=== PATIENT | female | born 1980 ===

== ENCOUNTER 2016-10-28 21:28 | Emergency (ER) | payer SELFPAY ==
[2016-10-28 21:33] VITALS: BP 106/63; PULSE 91; RESP 16; TEMP 98.6; O2SAT 98
[2016-10-28] MEDS ORDERED: Sodium Chloride 0.9% 1,000 ML IV STA (21:44)
--- NOTE | 2016-10-28 22:20 | ED PDOC ---
HPI: Abdomen Time Seen by Provider: 10/28/16 21:38 Chief Complaint (Nursing): Abdominal Pain Chief Complaint (Provider): Abdominal Pain History Per: Patient History/Exam Limitations: no limitations Pain Scale Rating Of: 7 Location Of Pain/Discomfort: RUQ (Epigastric tenderness) Quality Of Discomfort: Burning Associated Symptoms: Nausea, Vomiting (Non bloody. Non bilious vomiting), Constipation. denies: Fever Additional Complaint(s): Wilmer Mortensen is a 36 y/o female who presents to the ED with a chief complaint of abdominal pain and nausea onset x1week. Associated symptoms include vomiting(non bloody, non bilious) and constipation. Patient reports the abdominal pain is located in the right upper quadrant and radiates to the right flank. States discomfort is 7/10 and is described as a burning sensation. Denies any fever, cough, shortness of breath, or chest pain. Past Medical History Reviewed: Historical Data, Nursing Documentation, Vital Signs Vital Signs: Last Vital Signs Temp 98.6 F 10/28/16 21:32 Pulse 91 H 10/28/16 21:32 Resp 16 10/28/16 21:32 BP 106/63 10/28/16 21:32 Pulse Ox 98 10/28/16 22:38 - Medical History PMH: No Chronic Diseases - Surgical History Surgical History: No Surg Hx - Family History Family History: States: Unknown Family Hx - Social History Current smoker - smoking cessation education provided: No Ex-Smoker (has not smoked in the last 12 months): No Alcohol: None Drugs: Denies - Allergies Allergies/Adverse Reactions: Allergies Allergy/AdvReac Type Severity Reaction Status Date / Time No Known Allergies Allergy Verified 10/28/16 21:31 Review of Systems ROS Statement: Except As Marked, All Systems Reviewed And Found Negative Constitutional: Negative for: Fever Cardiovascular: Negative for: Chest Pain Respiratory: Negative for: Cough, Shortness of Breath Gastrointestinal: Positive for: Nausea, Vomiting (Non bloody non billius vomiting), Abdominal Pain, Constipation Physical Exam - Reviewed Nursing Documentation Reviewed: Yes Vital Signs Reviewed: Yes - Physical Exam Appears: Positive for: Well, Non-toxic, Uncomfortable Head Exam: Positive for: ATRAUMATIC, NORMAL INSPECTION, NORMOCEPHALIC Skin: Positive for: Normal Color, Warm, Dry Eye Exam: Positive for: Normal appearance, EOMI, PERRL ENT: Positive for: Normal ENT Inspection Neck: Positive for: Normal, Painless ROM, Supple Cardiovascular/Chest: Positive for: Regular Rate, Rhythm. Negative for: Murmur , Tachycardia Respiratory: Positive for: Normal Breath Sounds. Negative for: Wheezing, Respiratory Distress Gastrointestinal/Abdominal: Positive for: Normal Exam, Soft, Tenderness (RUQ Epigastric tenderness) Back: Positive for: Normal Inspection Rectal: Positive for: Deferred Extremity: Positive for: Normal ROM Lymphatic: Positive for: Deferred Neurologic/Psych: Positive for: Alert, Oriented - Laboratory Results Result Diagrams: 10/28/16 22:14 10/28/16 22:14 - ECG O2 Sat by Pulse Oximetry: 98 (RA) Pulse Ox Interpretation: Normal Medical Decision Making Medical Decision Making: Time : 2137: Initial Impression: Right upper quadrant epigastric pain Initial Plan: * Beta HCG * CMP * Lipase Stat * Urine * ED U-Dip * CBC with differentials * Sodium chloride 1000ml * Zofran 4mg IV * Heplock Insertion * Urinalysis Stat * Abdomen limited (GB included) US * Pelvic tranvag US Stat * Re-Eval 7: US OB impression: Single live IUP with details as above. Followup imaging recommended. US RUQ impression: No acute sonographic abnormality. Details as above. 0005: Labs reviewed, show no clinically significant abnormalities and patient stable for d/c. Dx: first trimester stable Scribe Attestation: Documented by Elena Ortiz acting as a scribe for Beau Leslie MD. Provider Scribe Attestation: All medical record entries made by the Scribe were at my direction and personally dictated by me. I have reviewed the chart and agree that the record accurately reflects my personal performance of the history, physical exam, medical decision making, and the department course for this patient. I have also personally directed, reviewed, and agree with the discharge instructions and disposition. Time Disposition - Clinical Impression Clinical Impression: Abdominal pain during - Patient ED Disposition Is Patient to be Admitted: No - Disposition Referrals: [facility] [Outside] Disposition: Routine/Home Disposition Time: 00:05 Condition: STABLE Instructions: First Trimester (ED) Print Language: JORDANIAN
[2016-10-28 22:27] LABS: BASO # 0.1 K/uL (0.0-0.2); BASO % 0.5 % (0.0-2.0); EOS # 0.4 K/uL (0.0-0.7); EOS % 3.7 % (0.0-4.0); HEMATOCRIT 36.8 % (34.0-47.0); LYMPH # 3.5 K/uL (1.0-4.3); LYMPH % 31.9 % (20.0-40.0); MEAN CORPUSCULAR HEMOGLOBIN 29.7 pg (27.0-31.0); MEAN CORPUSCULAR HGB CONC 33.4 g/dL (33.0-37.0); MONO # 0.7 K/uL (0.0-0.8); MONO % 6.2 % (0.0-10.0); NEUT # 6.4 K/uL (1.8-7.0); NEUT % 57.7 % (50.0-75.0); NRBC % 0.1 % (0.0-0.0); RED CELL DISTRIBUTION WIDTH 12.9 % (11.5-14.5)
[2016-10-28 22:38] LABS: ALB/GLOB RATIO 1.2 (1.0-2.1); ALKALINE PHOSPHATASE 73 U/L (38-126); ALT/SGPT 63 U/L (9-52); AST/SGOT 31 U/L (14-36); BILIRUBIN,TOTAL 0.2 mg/dl (0.2-1.3); BLOOD UREA NITROGEN 8 mg/dl (7-17); CALCIUM 9.1 mg/dL (8.4-10.2); CARBON DIOXIDE 23 mmol/L (22-30); CHLORIDE 103 mmol/L (98-107); GFR AFRICAN-AMERICAN > 60; GLUCOSE,RANDOM 106 mg/dL (65-105); LIPASE 80 U/L (23-300); POTASSIUM 3.9 MMOL/L (3.6-5.0); SODIUM 136 mmol/l (132-148); TOTAL PROTEIN 7.3 G/DL (6.3-8.2)
[2016-10-28 22:41] LABS: RBC URINE 5 /hpf (0-3); URINE BACTERIA RARE (<OCC); URINE BILIRUBIN NEGATIVE (NEGATIVE); URINE BLOOD SMALL (NEGATIVE); URINE COLOR YELLOW (YELLOW); URINE GLUCOSE (UA) NEG (Normal); URINE KETONE TRACE mg/dL (NEGATIVE); URINE LEUKOCYTE ESTERASE TRACE Leu/uL (Negative); URINE PROTEIN NEGATIVE (NEGATIVE); URINE UROBILINOGEN 0.2-1.0 mg/dL (0.2-1.0); WBC URINE 3 /hpf (0-5)
--- NOTE | 2016-10-28 23:38 | US ---
EXAM: US Uterus CLINICAL HISTORY: 36 years old, female; Pain; Other: Abd pain; Gestational age or lmp: Unknown; ; Additional info: Abd pain in preg TECHNIQUE: Real-time ultrasound of the maternal uterus with image documentation. COMPARISON: No relevant prior studies available. FINDINGS: Uterus: There is a gestational sac within the endometrial canal. A pole and yolk sac are seen within the gestational sac. Mean sac diameter corresponds with gestational age of 9 weeks 5 days. Yolk sac measured at 7.6 mm. Ragan rump length measurement correlates with an estimated gestational age of 8 weeks 4 days. cardiac activity is seen with a heart rate of 163 beats per minute. Adnexa: 1.8 cm right ovarian cyst. Bilateral Doppler flow. Free fluid: None. IMPRESSION: Single live IUP with details as above. Followup imaging recommended.
--- NOTE | 2016-10-28 23:40 | US ---
EXAM: US Abdomen Limited, Right Upper Quadrant CLINICAL HISTORY: 36 years old, female; Pain; Abdominal pain; Epigastric; ; Additional info: Abd pain TECHNIQUE: Real-time ultrasound of the right upper quadrant with image documentation. COMPARISON: No relevant prior studies available. FINDINGS: Liver: Unremarkable as visualized. No mass. No intrahepatic bile duct dilation. Gallbladder: Contracted. Unremarkable in appearance. Common bile duct: No dilation. Pancreas: Unremarkable as visualized. Right kidney: Measures at 10.9 cm. No hydronephrosis. Bowel gas. IMPRESSION: No acute sonographic abnormality. Details as above.
== END 2016-10-29 00:18 | disposition home or self-care (01) ==
LOC: H.ER 21:28
DX: O26.899 Other specified pregnancy related conditions, unspecified trimester (principal); O21.9 Vomiting of pregnancy, unspecified
CPT/HCPCS: 76705; 76815; 80053; 81003; 81025; 83690; 85025; 99282; J2405; J7040

== ENCOUNTER 2017-07-03 14:13 | Emergency (ER) | payer OTHER ==
[2017-07-03 14:48] VITALS: BP 123/73; PULSE 83; RESP 20; TEMP 98; O2SAT 100
--- NOTE | 2017-07-03 16:17 | ED PDOC ---
HPI: Abdomen Time Seen by Provider: 07/03/17 15:42 Chief Complaint (Nursing): Abdominal Pain Chief Complaint (Provider): Abdominal pain History Per: Patient History/Exam Limitations: no limitations Additional Complaint(s): Pt reports lower abdominal pain X 1 month, associated with nausea. LMP at end of May but for one day. Denies fever, vomiting, diarrhea, dysuria, vaginal bleeding, vaginal discharge. Last BM 4 days ago. Unsure if she is . Past Medical History Reviewed: Nursing Documentation, Vital Signs Vital Signs: Last Vital Signs Temp 98.0 F 07/03/17 14:44 Pulse 83 07/03/17 14:44 Resp 20 07/03/17 14:44 BP 123/73 07/03/17 14:44 Pulse Ox 100 07/03/17 17:21 - Medical History PMH: No Chronic Diseases - Surgical History Surgical History: No Surg Hx - Family History Family History: States: Unknown Family Hx - Social History Current smoker - smoking cessation education provided: No Alcohol: None - Home Medications Home Medications: Ambulatory Orders Medication Instructions Recorded Polyethylene Glycol 3350 [Miralax] 1 tbs PO DAILY PRN #1 bottle 07/03/17 - Allergies Allergies/Adverse Reactions: Allergies Allergy/AdvReac Type Severity Reaction Status Date / Time No Known Allergies Allergy Verified 07/03/17 14:44 Review of Systems Constitutional: Negative for: Fever, Chills Cardiovascular: Negative for: Chest Pain, Palpitations Respiratory: Negative for: Cough, Shortness of Breath Gastrointestinal: Positive for: Nausea, Abdominal Pain. Negative for: Vomiting , Diarrhea Genitourinary Female: Negative for: Dysuria, Hematuria, Vaginal Discharge, Vaginal Bleeding Musculoskeletal: Negative for: Back Pain Skin: Negative for: Rash, Lesions Neurological: Negative for: Headache, Dizziness Physical Exam - Reviewed Nursing Documentation Reviewed: Yes Vital Signs Reviewed: Yes - Physical Exam Appears: Positive for: Well, No Acute Distress Skin: Positive for: Normal Color, Warm, Dry Eye Exam: Positive for: Normal appearance, EOMI, PERRL Cardiovascular/Chest: Positive for: Regular Rate, Rhythm Respiratory: Positive for: Normal Breath Sounds Gastrointestinal/Abdominal: Positive for: Normal Exam, Bowel Sounds, Soft. Negative for: Tenderness, Guarding, Rebound Back: Positive for: Normal Inspection. Negative for: L CVA Tenderness, R CVA Tenderness Extremity: Positive for: Normal ROM Neurologic/Psych: Positive for: Alert, Oriented - ECG O2 Sat by Pulse Oximetry: 100 Medical Decision Making Medical Decision Makin yo female with nausea, abdominal pain and constipation. - UA - urine Disposition - Clinical Impression Clinical Impression: Constipation - Disposition Referrals: [facility] [Outside] Disposition: Routine/Home Disposition Time: 17:18 Condition: GOOD Prescriptions: Polyethylene Glycol 3350 [Miralax] 1 tbs PO DAILY PRN #1 bottle PRN Reason: Constipation Instructions: Constipation (ED) Forms: [employer] (Persian) Print Language: SAO TOMEAN
--- NOTE | 2017-07-03 17:43 | RAD ---
Indication: Constipation Abdomen with chest radiographs Comparison: None Findings: The cardiomediastinal silhouette appears within normal limits. No focal consolidation, significant pleural effusion, or definite pneumothorax identified.Please note that chest x-ray has limited sensitivity for the detection of pulmonary masses. Nonobstructive bowel gas pattern. No definite free air. Mild constipation. No acute osseous abnormality is detected. Impression: Mild constipation.
== END 2017-07-03 17:23 | disposition home or self-care (01) ==
LOC: H.ER 14:13
DX: K59.00 Constipation, unspecified (principal)

== ENCOUNTER 2017-09-01 19:52 | Emergency (ER) | payer SELFPAY ==
[2017-09-01 19:59] VITALS: RESP 16; O2SAT 98
[2017-09-01] MEDS ORDERED: Sodium Chloride 0.9% 1,000 ML IV SCH (20:45)
--- NOTE | 2017-09-01 21:06 | ED PDOC ---
HPI: Abdomen Time Seen by Provider: 09/01/17 20:25 Chief Complaint (Nursing): GI Problem Chief Complaint (Provider): Abdominal pain History Per: Patient History/Exam Limitations: no limitations Onset/Duration Of Symptoms: Days, Persistent Outside of [place] travel?: No Current Symptoms Are (Timing): Still Present Location Of Pain/Discomfort: Suprapubic Quality Of Discomfort: "Pain" Associated Symptoms: Nausea, Constipation Additional History Per: Patient Additional Complaint(s): 37yo female, presents to ED with complaints of lower abdominal pain, initially intermittent for the past 2 days but constant today. Patient also reports associated nausea, constipation (past 4 days, with small bowel movement). Otherwise: (-) vomiting, (-) diarrhea, (-) fever, (-) urinary symptoms, (-) vaginal bleeding or d/c, (-) melena, (-) hematochezia, (-) h/o abdominal surgery. Abnormal Vaginal Bleeding: No Past Medical History Reviewed: Historical Data, Nursing Documentation, Vital Signs Vital Signs: Last Vital Signs Temp 98.1 F 09/01/17 19:56 Pulse 85 09/01/17 19:56 Resp 16 09/01/17 19:56 BP 123/80 09/01/17 19:56 Pulse Ox 98 09/01/17 21:18 - Medical History PMH: No Chronic Diseases - Surgical History Surgical History: No Surg Hx - Family History Family History: States: Unknown Family Hx - Home Medications Home Medications: Ambulatory Orders Medication Instructions Recorded Polyethylene Glycol 3350 [Miralax] 1 tbs PO DAILY PRN #1 bottle 07/03/17 Polyethylene Glycol 3350 [Miralax] 17 pow PO DAILY #20 each 09/01/17 - Allergies Allergies/Adverse Reactions: Allergies Allergy/AdvReac Type Severity Reaction Status Date / Time No Known Allergies Allergy Verified 07/03/17 14:44 Review of Systems ROS Statement: Except As Marked, All Systems Reviewed And Found Negative Constitutional: Negative for: Fever, Chills Cardiovascular: Negative for: Chest Pain Gastrointestinal: Positive for: Abdominal Pain. Negative for: Nausea, Vomiting , Diarrhea Physical Exam - Physical Exam Comments: GENERAL APPEARANCE: Patient is awake, alert, oriented x 3, in no acute distress SKIN: Warm, dry; (-) cyanosis. EYES: (-) conjunctival pallor, (-) scleral icterus. ENMT: Mucous membranes moist. NECK: (-) tenderness, (-) stiffness, (-) lymphadenopathy. CHEST AND RESPIRATORY: (-) rales, (-) rhonchi, (-) wheezes; breath sounds equal bilaterally. HEART AND CARDIOVASCULAR: (-) irregularity; (-) murmur, (-) gallop. ABDOMEN AND GI: (-) distention. Bowel sounds active; (+) mild suprapubic tenderness, (-) guarding, (-) rebound, (-) palpable masses, (-) CVA tenderness. EXTREMITIES: (-) deformity, (-) edema, (+) distal pulses. NEURO AND PSYCH: Mental status as above; (-) focal findings. - Laboratory Results Result Diagrams: 09/01/17 22:15 09/01/17 22:15 - ECG O2 Sat by Pulse Oximetry: 98 Medical Decision Making Medical Decision Making: Previous medical records are reviewed, patient was last seen in this emergency room on 07/03/2017 for lower abdominal pain, abdominal x-rays were done, and patient was diagnosed with constipation. Impression: Constipation, consider UTI, r/o ectopic Plan: -- Labs -- IV fluids -- Urinalysis -- Uhcg -- AXR -- Zofran ODT PO/ Toradol IV -- Reassess and disposition Uhcg : (-) UA : (-) for infection Labs : reviewed and wnl AXR : NSBGP, no air fluid levels, as read by PA On re-evaluation, patient reports improvement of abdominal pain. On exam, patient remains AAOx3, in no acute distress. On exam, abdomen soft, non-tender. Diagnostic results d/w the patient in great detail. Diagnosis of constipation d/ w the patient. Advised to increase intake of water, fiber and increase physical activity including exercise to maintain normal bowel movements. Based on history, exam and diagnostic results, plan will be for outpatient follow up. Patient instructed to follow-up with the clinic in 1-2 days without fail. Advised to take medication as prescribed. Return to the emergency room at any time for any new or worsening symptoms. Patient states hshe fully agrees with and understands discharge instructions. States that she agrees with the plan and disposition. Verbalized and repeated discharge instructions and plan. I have given the patient opportunity to ask any additional questions. Disposition - Clinical Impression Clinical Impression: Constipation, Abdominal pain - Patient ED Disposition Is Patient to be Admitted: No Counseled Patient/Family Regarding: Studies Performed, Diagnosis, Need For Followup, Rx Given - Disposition Referrals: [facility] [Outside] [facility] [Outside] Disposition: Routine/Home Disposition Time: 23:15 Condition: IMPROVED Additional Instructions: Thank you for letting us take care of you today. You were treated for abdominal pain, constipation. The emergency medical care you received today was directed at your acute symptoms. If you were prescribed any medication, please fill it and take as directed. It may take several days for your symptoms to resolve. Return to the Emergency Department if your symptoms worsen, do not improve, or if you have any other problems. Please contact your doctor in 2 days for re-evaluation and follow up / or call one of the physicians/clinics you have been referred to that are listed on the Patient Visit Information form that is included in your discharge packet. Bring any paperwork you were given at discharge with you along with any medications you are taking to your follow up visit. Our treatment cannot replace ongoing medical care by a primary care provider (PCP) outside of the emergency department. Thank you for allowing the [facility] team to be part of your care today. Prescriptions: Polyethylene Glycol 3350 [Miralax] 17 pow PO DAILY #20 each Instructions: Constipation in Adults Forms: [employer] (Chinese) Print Language: UKRAINIAN
[2017-09-01 22:27] LABS: BASO % 0.4 % (0.0-2.0); EOS # 0.4 K/uL (0.0-0.7); EOS % 4.5 % (0.0-4.0); HEMOGLOBIN 12.9 g/dL (12.0-16.0); LYMPH # 3.6 K/uL (1.0-4.3); LYMPH % 42.7 % (20.0-40.0); MEAN CELL VOLUME 89.5 fl (81.0-99.0); MEAN CORPUSCULAR HEMOGLOBIN 29.3 pg (27.0-31.0); MEAN CORPUSCULAR HGB CONC 32.8 g/dL (33.0-37.0); MEAN PLATELET VOLUME 8.6 fl (7.2-11.7); MONO # 0.4 K/uL (0.0-0.8); MONO % 5.1 % (0.0-10.0); NEUT % 47.3 % (50.0-75.0); NRBC % 0.1 % (0.0-0.0); RBC 4.39 Mil/uL (3.80-5.20); RED CELL DISTRIBUTION WIDTH 12.8 % (11.5-14.5); SQUAMOUS EPITHIAL < 1 /hpf (0-5); URINE BILIRUBIN NEGATIVE (NEGATIVE); URINE BLOOD SMALL (NEGATIVE); URINE CLARITY CLEAR (Clear); URINE COLOR COLORLESS (YELLOW); URINE GLUCOSE (UA) NEG (Normal); URINE LEUKOCYTE ESTERASE NEG Leu/uL (Negative); URINE PROTEIN NEGATIVE (NEGATIVE); URINE UROBILINOGEN 0.2-1.0 mg/dL (0.2-1.0); WHITE BLOOD COUNT 8.5 K/uL (4.8-10.8)
[2017-09-01 22:33] LABS: ALB/GLOB RATIO 1.1 (1.0-2.1); ALBUMIN 3.9 g/dL (3.5-5.0); ALT/SGPT 45 U/L (9-52); AST/SGOT 22 U/L (14-36); BLOOD UREA NITROGEN 13 mg/dl (7-17); CALCIUM 8.7 mg/dL (8.4-10.2); GFR AFRICAN-AMERICAN > 60; GFR NON-AFRICAN AMERICAN > 60; LIPASE 105 U/L (23-300)
[2017-09-02 00:12] VITALS: BP 129/68; PULSE 77; TEMP 98.2
--- NOTE | 2017-09-02 08:11 | RAD ---
PROCEDURE: Radiographs of the chest and abdomen (obstructive series) HISTORY: pain, constipation COMPARISON: No prior. TECHNIQUE: AP radiograph of the chest, with upright and supine radiographs of the abdomen. FINDINGS: CHEST: Lungs: Clear. Cardiovascular: Normal size heart. No pulmonary vascular congestion. Pleura: No pleural fluid. No pneumothorax. Other findings: None. ABDOMEN AND PELVIS: Bowel: Unremarkable bowel gas pattern. No evidence of mechanical obstruction. Free air: None. Bones: Unremarkable. Other findings: None. IMPRESSION: Unremarkable radiographs of chest and abdomen. No evidence of mechanical bowel obstruction.
== END 2017-09-02 00:13 | disposition home or self-care (01) ==
LOC: H.ER 19:52
DX: K59.00 Constipation, unspecified (principal)
CPT/HCPCS: 74022; 80053; 81003; 81025; 83690; 85025; 87086; 96361; 96374; 99284; J1885; J7040

== ENCOUNTER 2017-09-17 15:21 | Emergency (ER) | payer SELFPAY ==
--- NOTE | 2017-09-17 17:10 | ED PDOC ---
HPI: Female Pain Time Seen by Provider: 09/17/17 15:50 Chief Complaint (Nursing): Female Genitourinary Chief Complaint (Provider): Vaginal Spotting History Per: Patient History/Exam Limitations: no limitations Onset/Duration Of Symptoms: Days (x3) Current Symptoms Are (Timing): Still Present Severity: None Associated Symptoms: denies: Nausea, Vomiting, Diarrhea, Back Pain, Constipation , Urinary Symptoms Alleviating Factors: None Additional Complaint(s): 37 year old female presenting to the emergency department for evaluation of vaginal spotting x3 days. The patient reports that every time she uses the bathroom and wipes she notices small amounts of blood. Patient states that she has not noticed any blood clots. She further states that for the past 3 months she has been having suprapubic pain, vaginal pain and mild vaginal discharge. Patient reports that she was worried that she might be because she has been sexual active with her partner. Denies fever, back pain, nausea, vomiting, diarrhea, urinary symptoms. PMD: FAMILY PROVIDER,NO Abnormal Vaginal Bleeding: Yes Past Medical History Reviewed: Historical Data, Nursing Documentation, Vital Signs Vital Signs: Last Vital Signs Temp 98 F 09/17/17 15:24 Pulse 74 09/17/17 15:24 Resp 16 09/17/17 15:24 BP 126/79 09/17/17 15:24 Pulse Ox 100 09/17/17 15:24 - Medical History PMH: No Chronic Diseases - Surgical History Surgical History: No Surg Hx - Family History Family History: States: Unknown Family Hx - Home Medications Home Medications: Ambulatory Orders Medication Instructions Recorded Polyethylene Glycol 3350 [Miralax] 1 tbs PO DAILY PRN #1 bottle 07/03/17 Polyethylene Glycol 3350 [Miralax] 17 pow PO DAILY #20 each 09/01/17 Nitrofurantoin Macrocrystals 100 mg PO BID #14 cap 09/17/17 [Macrobid] - Allergies Allergies/Adverse Reactions: Allergies Allergy/AdvReac Type Severity Reaction Status Date / Time No Known Allergies Allergy Verified 09/17/17 15:24 Review of Systems ROS Statement: Except As Marked, All Systems Reviewed And Found Negative Constitutional: Negative for: Fever Gastrointestinal: Negative for: Nausea, Vomiting, Abdominal Pain, Diarrhea Genitourinary Female: Positive for: Vaginal Discharge, Vaginal Bleeding (and vaginal pain) Musculoskeletal: Negative for: Back Pain Physical Exam - Reviewed Nursing Documentation Reviewed: Yes Vital Signs Reviewed: Yes - Physical Exam Appears: Positive for: Non-toxic, No Acute Distress Head Exam: Positive for: ATRAUMATIC, NORMAL INSPECTION, NORMOCEPHALIC Skin: Positive for: Normal Color, Warm, Dry. Negative for: Rash Eye Exam: Positive for: Normal appearance, EOMI, PERRL. Negative for: Nystagmus ENT: Positive for: Normal ENT Inspection. Negative for: Nasal Congestion, Tonsillar Exudate, Tonsillar Swelling Neck: Positive for: Normal, Painless ROM, Supple Cardiovascular/Chest: Positive for: Regular Rate, Rhythm, Chest Non Tender. Negative for: Tachycardia Respiratory: Positive for: Normal Breath Sounds. Negative for: Rales, Rhonchi, Wheezing, Respiratory Distress Gastrointestinal/Abdominal: Positive for: Normal Exam, Bowel Sounds, Soft. Negative for: Tenderness, Mass, Guarding, Rebound Pelvic Exam: Positive for: External Exam Normal ([employer] ER the agustin external normal), Discharge (Small amount of brown discharge ). Negative for: No Cerv. Motion Tender, No Masses, Active Bleeding, Tender W/Cervical Motion, Tender Adnexa, Tender Uterus Back: Positive for: Normal Inspection. Negative for: L CVA Tenderness, R CVA Tenderness Extremity: Positive for: Normal ROM. Negative for: Tenderness, Deformity, Swelling Neurologic/Psych: Positive for: Alert, Oriented, Gait - ECG O2 Sat by Pulse Oximetry: 100 (RA) Pulse Ox Interpretation: Normal - Progress Re-evaluation Time: 18:51 Condition: Re-examined, Improved Medical Decision Making Medical Decision Makin Initial Impression 37 year old female presenting with pelvic pain and vagina bleeding with discharge Patient tested negative on test. Differentials:UTI, STD, pelvic inflammatory disease, uterine fibroids menstrual period with dysmenorrhea Initial Plan: * Upreg * Udip * Chlamydia/GC * US pelvis/transvaginal * Reevaluation 1820 US pelvis/transvaginal HISTORY: pelvic pain vaginal pain vaginal bleeding COMPARISON: None available. TECHNIQUE: Transabdominal and transvaginal pelvic ultrasound was performed. FINDINGS: UTERUS: Measures 7.5 x 4.5 x 4.4 cm. Anteverted, normal in size and appearance. No fibroid or other mass lesion seen. ENDOMETRIUM: Measures 10 mm in diameter. Unremarkable. CERVIX: No cervical abnormality identified. RIGHT OVARY: Measures 2.0 x 1.4 x 1.7 cm. No solid mass. Normal flow. LEFT OVARY: Measures 1.9 x 1.4 x 2.1 cm. No solid mass. Normal flow. FREE FLUID: No significant free fluid noted. OTHER FINDINGS: None. IMPRESSION: Normal pelvic ultrasound. Documented by Lolis Rosas acting as a scribe for Nilesh Barfield MD. All medical record entries made by the Scribe were at my direction and personally dictated by me. I have reviewed the chart and agree that the record accurately reflects my personal performance of the history, physical exam, medical decision making, and the department course for this patient. I have also personally directed, reviewed, and agree with the discharge instructions and disposition. Disposition - Clinical Impression Clinical Impression: Genitourinary Pain - Patient ED Disposition Is Patient to be Admitted: No Doctor Will See Patient In The: Office Counseled Patient/Family Regarding: Studies Performed, Diagnosis, Need For Followup - Disposition Referrals: [facility] [Outside] Disposition: Routine/Home Disposition Time: 18:52 Condition: GOOD Additional Instructions: Take motrin for pain. Take medications as instructed. Follow up with your PCP in 2-3 days. Prescriptions: Nitrofurantoin Macrocrystals [Macrobid] 100 mg PO BID #14 cap Instructions: Acute Pelvic Pain, Urinary Tract Infection, Adult (DC)
--- NOTE | 2017-09-17 18:23 | US ---
HISTORY: pelvic pain vaginal pain vaginal bleeding COMPARISON: None available. TECHNIQUE: Transabdominal and transvaginal pelvic ultrasound was performed. FINDINGS: UTERUS: Measures 7.5 x 4.5 x 4.4 cm. Anteverted, normal in size and appearance. No fibroid or other mass lesion seen. ENDOMETRIUM: Measures 10 mm in diameter. Unremarkable. CERVIX: No cervical abnormality identified. RIGHT OVARY: Measures 2.0 x 1.4 x 1.7 cm. No solid mass. Normal flow. LEFT OVARY: Measures 1.9 x 1.4 x 2.1 cm. No solid mass. Normal flow. FREE FLUID: No significant free fluid noted. OTHER FINDINGS: None. IMPRESSION: Normal pelvic ultrasound.
[2017-09-17 19:08] VITALS: BP 128/78; PULSE 78; RESP 19; TEMP 97; O2SAT 98
== END 2017-09-17 19:09 | disposition home or self-care (01) ==
LOC: H.ER 15:21
DX: N93.9 Abnormal uterine and vaginal bleeding, unspecified (principal); R10.2 Pelvic and perineal pain

== ENCOUNTER 2018-09-07 20:20 | Emergency (ER) | payer SELFPAY ==
[2018-09-07 20:27] VITALS: RESP 18; O2SAT 100
[2018-09-07] MEDS ORDERED: Alum-Mag Hydrox-Simethicone Susp (30 mL) PO ONE (20:52)
[2018-09-07] MEDS ORDERED: Sodium Chloride 0.9% 1,000 ML IV STA (20:52)
--- NOTE | 2018-09-07 20:55 | ED PDOC ---
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 states for the past week she's had a progressively worsening epigastric/RUQ pain associated with feeling bloated. Reports pain radiates up to her chest and she has an acidic taste. Also reports feeling constipated. Pt. states she used a laxative yesterday and had soft stool afterwards but no BM today. Also reports having urinary frequency. Further reports having b/l foot numbness and not leg pain x 1 month. Denies hx of DM, hematuria, vaginal bleeding, N/V/D, fever, chills, melena, hematochezia, BRBPR, previous abdominal surgeries. Past Medical History Reviewed: Historical Data, Nursing Documentation, Vital Signs Vital Signs: Last Vital Signs Temp 98.6 F 09/07/18 20:24 Pulse 69 09/07/18 20:24 Resp 18 09/07/18 20:24 BP 125/75 09/07/18 20:24 Pulse Ox 100 09/07/18 20:24 - Surgical History Surgical History: No Surg Hx - Family History Family History: States: No Known Family Hx - Home Medications Home Medications: Ambulatory Orders Medication Instructions Recorded Polyethylene Glycol 3350 [Miralax] 1 tbs PO DAILY PRN #1 bottle 07/03/17 Polyethylene Glycol 3350 [Miralax] 17 pow PO DAILY #20 each 09/01/17 Nitrofurantoin Macrocrystals 100 mg PO BID #14 cap 09/17/17 [Macrobid] Famotidine [Pepcid] 20 mg PO DAILY PRN #10 tab 09/08/18 - Allergies Allergies/Adverse Reactions: Allergies Allergy/AdvReac Type Severity Reaction Status Date / Time No Known Allergies Allergy Verified 09/07/18 20:27 Review of Systems ROS Statement: Except As Marked, All Systems Reviewed And Found Negative Gastrointestinal: Positive for: Abdominal Pain, Constipation Genitourinary Female: Positive for: Frequency Physical Exam - Physical Exam Appears: Positive for: Well, Non-toxic, No Acute Distress Skin: Positive for: Normal Color, Warm. Negative for: Rash Eye Exam: Positive for: Normal appearance. Negative for: Scleral icterus Cardiovascular/Chest: Positive for: Regular Rate, Rhythm Respiratory: Positive for: Normal Breath Sounds. Negative for: Respiratory Distress Pulses-Dorsalis Pedis (L): 2+ Pulses-Dorsalis Pedis (R): 2+ Gastrointestinal/Abdominal: Positive for: Normal Exam, Bowel Sounds, Soft. Negative for: Tenderness, Distended, Guarding Back: Positive for: Normal Inspection. Negative for: L CVA Tenderness, R CVA T enderness Extremity: Negative for: Calf Tenderness (b/l) Neurological/Psych: Positive for: Awake, Alert, Oriented (x3) - Laboratory Results Result Diagrams: 09/07/18 22:43 09/07/18 22:43 - ECG O2 Sat by Pulse Oximetry: 100 - Progress ED Course And Treament: Labs, Pepcid 20mg IV, maalox 30ml PO, IV NS bolus x 1 ordered. Medical Decision Making Medical Decision Making: Time: 2056 Plan: -- CMP -- Lipase -- NPO Diet -- ED Urine -- CBC with Differentials -- Obstructive Series XR -- Maalox 30 ml PO -- Sodium Chloride IV 1000 mls/hr -- Pepcid 20 mg IVP -- Zofran 4 mg IVP -- Urine C&S -- IV Insertion -- Urinalyis -- US Abdomen Limited Time: 2318 EXAM: US Abdomen, Right Upper Quadrant. CLINICAL HISTORY: Ruq/epigastric pain TECHNIQUE: Right upper quadrant sonography performed with image documentation. COMPARISON: None provided. FINDINGS: LIVER: Within normal limits in size and echogenicity. No mass. GALLBLADDER: Cholelithiasis is identified. No gallbladder wall thickening or pericholecystic fluid. COMMON BILE DUCT: Within normal limits in size. PANCREAS: The distal pancreas is obscured by bowel gas. The visualized portion of the pancreas appears within normal limits. RIGHT KIDNEY: Unremarkable. Normal renal contours. No renal mass or calculus. No hydronephrosis. IMPRESSION: 1. Cholelithiasis. 2. Otherwise, unremarkable right upper quadrant ultrasound. Electronically signed on Sep 07, 2018 11:19:26 PM EDT by: Luis Alberto Shepherd M.D., M.B.A., Certified By [employer] Trained MRI and CT Specialist On re-evaluation, pt. reports good pain relief. Informed of results. Advised to f/u with PMD but is to return to ED immediately if symptoms worsen. Scribe Attestation: Documented by Zan Purdy, acting as a scribe Joseph Dave PA-C. Provider Scribe Attestation: All medical record entries made by the Scribe were at my direction and personally dictated by me. I have reviewed the chart and agree that the record accurately reflects my personal performance of the history, physical exam, medical decision making, and the department course for this patient. I have also personally directed, reviewed, and agree with the discharge instructions and disposition. Disposition - Clinical Impression Clinical Impression: Gallstones, Dyspepsia - Patient ED Disposition Is Patient to be Admitted: No Counseled Patient/Family Regarding: Studies Performed, Diagnosis, Need For Followup, Rx Given - Disposition Referrals: [facility] [Outside] Disposition: Routine/Home Disposition Time: 23:19 Condition: IMPROVED Additional Instructions: FOLLOW UP WITH YOUR DOCTOR FOR FURTHER EVALUATION RETURN TO ED IMMEDIATELY IF SYMPTOMS WORSEN ESTELLA RICHARDS, thank you for letting us take care of you today. Your provider was Brigitte Moyer MD and you were treated for ABD PAIN. The [facility] medical care you received today was directed at your acute symptoms. If you were prescribed any medication, please fill it and take as directed. It may take several days for your symptoms to resolve. Return to the Emergency Department if your symptoms worsen, do not improve, or if you have any other problems. Please contact your doctor or call one of the physicians/clinics you have been referred to that are listed on the Patient Visit Information form that is included in your discharge packet. Bring any paperwork you were given at discharge with you along with any medications you are taking to your follow up visit. Our treatment cannot replace ongoing medical care by a primary care cosme mckee outside of the emergency department. Thank you for allowing the [facility] team to be part of your care today. If you had an X-Ray or CT scan: A Radiologist will review the ED reading if any change in treatment is needed we will contact you. If you had a blood, urine, or wound culture: It will take several days for the results, if any change in treatment is needed we will contact you. If you had an STI test: It will take 48 hours for the results. Please call after 1 week if you have not heard back. Prescriptions: Famotidine [Pepcid] 20 mg PO DAILY PRN #10 tab PRN Reason: Dyspepsia Instructions: Dyspepsia (DC), Gallstones (DC) Forms: [employer] ([place])
[2018-09-07 22:47] LABS: SQUAMOUS EPITHIAL 4 /hpf (0-5); URINE BILIRUBIN NEGATIVE (NEGATIVE); URINE BLOOD SMALL (NEGATIVE); URINE CLARITY SLIGHTY-CLOUDY (Clear); URINE COLOR STRAW (YELLOW); URINE GLUCOSE (UA) NEG (NEGATIVE); URINE LEUKOCYTE ESTERASE TRACE Leu/uL (Negative); URINE PROTEIN NEGATIVE (NEGATIVE); URINE UROBILINOGEN 0.2-1.0 mg/dL (0.2-1.0)
[2018-09-07 22:49] LABS: BASO % 0.4 % (0.0-2.0); EOS # 0.3 K/uL (0.0-0.7); HEMOGLOBIN 13.2 g/dL (12.0-16.0); LYMPH # 3.9 K/uL (1.0-4.3); LYMPH % 46.8 % (20.0-40.0); MEAN CELL VOLUME 89.6 fl (81.0-99.0); MEAN CORPUSCULAR HEMOGLOBIN 30.1 pg (27.0-31.0); MEAN CORPUSCULAR HGB CONC 33.5 g/dL (33.0-37.0); MEAN PLATELET VOLUME 8.3 fl (7.2-11.7); MONO # 0.4 K/uL (0.0-0.8); MONO % 5.2 % (0.0-10.0); NEUT # 3.6 K/uL (1.8-7.0); NEUT % 43.6 % (50.0-75.0); NRBC % 0.1 % (0.0-0.0); RBC 4.38 Mil/uL (3.80-5.20); RED CELL DISTRIBUTION WIDTH 12.7 % (11.5-14.5); WHITE BLOOD COUNT 8.3 K/uL (4.8-10.8)
[2018-09-07 23:01] LABS: ALB/GLOB RATIO 1.3 (1.0-2.1); ALBUMIN 4.3 g/dL (3.5-5.0); ALT/SGPT 28 U/L (9-52); AST/SGOT 20 U/L (14-36); BLOOD UREA NITROGEN 14 mg/dl (7-17); GFR NON-AFRICAN AMERICAN > 60; LIPASE 121 U/L (23-300)
[2018-09-07] MEDS ORDERED: Alum-Mag Hydrox-Simethicone Susp (30 mL) ONE (23:28)
[2018-09-08 01:29] VITALS: BP 106/42; PULSE 70; TEMP 98.8
--- NOTE | 2018-09-08 08:51 | US ---
Date of service: 09/07/2018 HISTORY: epigastric and RUQ pain COMPARISON: None. TECHNIQUE: Sonographic evaluation of the right upper quadrant of the abdomen. FINDINGS: LIVER: Measures 14.7 cm in length. Normal echogenicity of the liver parenchyma. No mass. No intrahepatic bile duct dilatation. GALLBLADDER: There are a few layering gallstones identified. No gallbladder wall thickening or pericholecystic fluid is seen. The gallbladder wall measures 2 millimeters. No sonographic López's sign was elicited by the technologist. COMMON BILE DUCT: Measures 3 mm. No stones. No dilatation. PANCREAS: Unremarkable as visualized. No mass. No ductal dilatation. RIGHT KIDNEY: Measures 10.6 cm in length. Normal echogenicity. No calculus, mass, or hydronephrosis. AORTA: No aneurysmal dilatation. IVC: Unremarkable. OTHER FINDINGS: Visualized hepatic veins appeared patent. IMPRESSION: Cholelithiasis. No ultrasound evidence of acute cholecystitis. Further clinical follow-up is suggested. This agrees with preliminary report.
--- NOTE | 2018-09-08 09:29 | RAD ---
Date of service: 09/07/2018 PROCEDURE: Radiographs of the chest and abdomen (obstructive series) HISTORY: constipation COMPARISON: No prior. TECHNIQUE: AP radiograph of the chest, with upright and supine radiographs of the abdomen. 3 views obtained. FINDINGS: CHEST: Lungs: Clear. Cardiovascular: Normal size heart. No pulmonary vascular congestion. No aortic atherosclerotic calcification present Pleura: No pleural fluid. No pneumothorax. Other findings: None. ABDOMEN AND PELVIS: Bowel: Unremarkable bowel gas pattern. No evidence of mechanical obstruction. Free air: None. Bones: Unremarkable. Other findings: None. IMPRESSION: Unremarkable radiographs of chest and abdomen. No evidence of mechanical bowel obstruction.
== END 2018-09-08 01:25 | disposition home or self-care (01) ==
LOC: H.ER 20:20
DX: K80.20 Calculus of gallbladder without cholecystitis without obstruction (principal); R10.13 Epigastric pain
CPT/HCPCS: 74022; 76705; 80053; 81003; 81025; 83690; 85025; 96361; 96374; 96375; 99284; J2405; J7030